=== PATIENT | male | born 1955 | race Caucasian/White ===

== ENCOUNTER 2016-07-10 11:53 | Day surgery (SDC) | payer OTHER ==
[2016-07-08 16:27] VITALS: BMI 26.1
--- NOTE | 2016-07-10 09:05 | HP ---
History & Physical Update - History History: No Change - Physical Physical: No Change - Assessment Assessment: No Change - Plan Plan: No Change
[2016-07-10] MEDS ORDERED: ceFAZolin SODIUM 1 GM VIAL ONE (15:22)
[2016-07-10] MEDS ORDERED: PROPOFOL 20 ML ONE ×2 (15:22→15:43)
[2016-07-10] MEDS ORDERED: ROCURONIUM BROMIDE 50 MG/5 ML VIAL ONE ×2 (15:22→16:32)
[2016-07-10] MEDS ORDERED: MIDAZOLAM HCL 2 MG/2 ML SINGLE DOSE VIAL ONE (15:23)
[2016-07-10] MEDS ORDERED: ceFAZolin SODIUM 1 GM VIAL IVPB ONE (15:48)
[2016-07-10] MEDS ORDERED: BUPIVACAINE HCL/PF 0.5% (5MG/ML) 10 ML VIAL IJ ONE ×2 (16:54)
[2016-07-10] MEDS ORDERED: PHENYLEPHRINE HCL 10 MG/1 ML SINGLE DOSE VIAL ONE (16:55)
--- NOTE | 2016-07-10 18:10 | HP ---
History & Physical Update - History History: No Change - Physical Physical: No Change - Assessment Assessment: No Change - Plan Plan: No Change
[2016-07-10] MEDS ORDERED: ZOLPIDEM TARTRATE 5 MG TABLET PO PRN (18:11)
[2016-07-10] MEDS ORDERED: ACETAMINOPHEN 325 MG TABLET (FP) PO PRN (18:11)
[2016-07-10] MEDS ORDERED: oxyCODONE HCL 5 MG TABLET PO PRN (18:11)
[2016-07-10] MEDS ORDERED: ONDANSETRON 4 MG/2 ML VIAL IVPB PRN (18:11)
--- NOTE | 2016-07-10 18:14 | OP ---
Operative Note - Note: Operative Date: 07/10/16 Pre-Operative Diagnosis: Bilateral inguinal herniae , incarcerated. Operation: Repair of incarcerated, bilateral inguinal herniae with plug and mesh. Implants: Plug x 4, and mesh x 2. Post-Operative Diagnosis: Same as Pre-op Surgeon: Radha Stephenson Mulling Machine Operator: Lisha Pastor Anesthesiologist/GOODYEAR STITCHER: Rosalind Zamora Anesthesia: General Specimens Removed: None. Estimated Blood Loss (mls): 5 Operative Report Dictated: Yes
[2016-07-10] MEDS ORDERED: ONDANSETRON 4 MG/2 ML VIAL IVPUSH PRN (18:15)
[2016-07-10] MEDS ORDERED: HYDROmorphone HCL CARPU-JECT 1 MG/1 ML DISP.SYRIN IVPB PRN (18:16)
[2016-07-10] MEDS ORDERED: HYDROmorphone HCL CARPU-JECT 2 MG/1 ML DISP.SYRIN ONE (18:18)
[2016-07-10] MEDS: ACETAMINOPHEN 1000 MG/100 ML VIAL (NON FORMULARY) IVPB ONE (18:25)
[2016-07-10] MEDS: HYDROmorphone HCL CARPU-JECT 1 MG/1 ML DISP.SYRIN IVPUSH PRN ×4 (18:25→19:10)
[2016-07-10] MEDS: RAMIPRIL 5 MG CAPSULE (FP) PO SCH (21:37)
[2016-07-10] MEDS: busPIRone HCL 5 MG TABLET PO SCH (21:38)
[2016-07-10] MEDS: HEPARIN NA (PORCINE) 5,000 UNITS/ML 1ML VIAL SQ SCH (21:40)
[2016-07-10] MEDS ORDERED: HYDROCHLOROTHIAZIDE 12.5 MG CAPSULE (FP) PO SCH (22:00)
[2016-07-10] MEDS ORDERED: ESCITALOPRAM OXALATE 10 MG TABLET (FP) PO SCH (22:00)
[2016-07-10] MEDS ORDERED: glipiZIDE 5 MG TABLET (FP) PO SCH (22:00)
[2016-07-10] MEDS ORDERED: ATORVASTATIN CA 20 MG TABLET (FP) PO SCH (22:00)
[2016-07-11] MEDS: oxyCODONE HCL 5 MG TABLET PO PRN ×2 (01:55→09:43)
[2016-07-11] MEDS: busPIRone HCL 5 MG TABLET PO SCH ×2 (06:22→14:59)
[2016-07-11] MEDS: DEXTROSE 5%-0.45% SALINE 1,000 ML IV SCH ×2 (06:24→07:54)
[2016-07-11] MEDS: HEPARIN NA (PORCINE) 5,000 UNITS/ML 1ML VIAL SQ SCH ×2 (06:25→14:59)
[2016-07-11] MEDS ORDERED: metFORMIN HCL 500 MG TABLET (FP) PO SCH ×2 (07:00→16:30)
[2016-07-11] MEDS ORDERED: glipiZIDE 5 MG TABLET (FP) PO SCH ×2 (07:00→16:30)
[2016-07-11] MEDS: ACETAMINOPHEN 1000 MG/100 ML VIAL (NON FORMULARY) IVPB ONE ×2 (07:26→07:55)
[2016-07-11] MEDS: RAMIPRIL 5 MG CAPSULE (FP) PO SCH (09:44)
[2016-07-11] MEDS ORDERED: ASPIRIN 81 MG CHEWABLE TABLETS PO SCH (10:00)
--- NOTE | 2016-07-11 13:38 | PN ---
Progress Note, Physician - Current Medication List Current Medications: Active Medications Acetaminophen (Tylenol -) 650 mg PO Q4H PRN PRN Reason: FEVER Last Admin: 07/11/16 09:43 Dose: 650 mg Aspirin (Asa -) 81 mg PO DAILY [facility] Last Admin: 07/11/16 09:44 Dose: 81 mg Atorvastatin Calcium (Lipitor -) 20 mg PO HS [facility] Last Admin: 07/10/16 21:40 Dose: 20 mg Buspirone HCl (Buspar -) 5 mg PO TID [facility] Last Admin: 07/11/16 06:22 Dose: 5 mg Escitalopram Oxalate (Lexapro -) 10 mg PO HS [facility] Last Admin: 07/10/16 21:39 Dose: 10 mg Glipizide (Glucotrol -) 2.5 mg PO DAILY@0700 [facility] Last Admin: 07/11/16 06:23 Dose: 2.5 mg Glipizide (Glucotrol -) 5 mg PO DAILY@1630 [facility] Heparin Sodium (Porcine) (Heparin -) 5,000 unit SQ TID [facility] Last Admin: 07/11/16 06:25 Dose: 5,000 unit Hydrochlorothiazide (Hctz -) 12.5 mg PO [facility] Last Admin: 07/10/16 21:39 Dose: 12.5 mg Hydromorphone HCl (Dilaudid Injection -) 0.5 mg IVPUSH [id number] PRN PRN Reason: PAIN Stop: 07/13/16 18:17 Last Admin: 07/10/16 19:10 Dose: 0.5 mg Hydromorphone HCl (Dilaudid Injection -) 1 mg IVPB Q6H PRN PRN Reason: PAIN LEVEL 6-10 Last Admin: 07/11/16 06:14 Dose: 1 mg Dextrose/Sodium Chloride (D5-1/2ns -) 1,000 mls @ 100 mls/hr IV ASDIR [facility] Last Admin: 07/11/16 07:54 Dose: Not Given Metformin HCl (Glucophage -) 500 mg PO AM [facility] Last Admin: 07/11/16 06:23 Dose: 500 mg Metformin HCl (Glucophage -) 1,000 mg PO ACDIN [facility] Ondansetron HCl (Zofran Injection) 4 mg IVPB Q6H PRN PRN Reason: NAUSEA AND/OR VOMITING Oxycodone HCl (Roxicodone -) 5 mg PO Q4H PRN PRN Reason: PAIN LEVEL 1-5 Oxycodone HCl (Roxicodone -) 10 mg PO Q4H PRN PRN Reason: PAIN LEVEL 6-10 Last Admin: 07/11/16 09:43 Dose: 10 mg Ramipril (Altace -) 5 mg PO BID [facility] Last Admin: 07/11/16 09:44 Dose: 5 mg Zolpidem Tartrate (Ambien -) 5 mg PO HS PRN PRN Reason: Insomnia - Objective Vital Signs: Vital Signs Temperature 98.5 F 07/11/16 08:39 Pulse Rate 111 H 07/11/16 08:39 Respiratory Rate 16 07/11/16 09:00 Blood Pressure 126/72 07/11/16 08:39 O2 Sat by Pulse Oximetry (%) 97 07/11/16 09:00 Assessment/Plan Wound is clean , no complication. Patient states that his apartment has no heat , and water . He cannot go home. He is ambulating , and fit to go home. Will refer to social service.
[2016-07-11 14:38] VITALS: BP 127/71; PULSE 101; TEMP 98.9
--- NOTE | 2016-07-13 11:27 | OP ---
DATE OF OPERATION: 07/10/2016 TIME OF DICTATION: 6:30 p.m. PREOPERATIVE DIAGNOSIS: Large bilateral inguinal hernia, right greater than left. POSTOPERATIVE DIAGNOSIS: Large bilateral inguinal hernia, right greater than left. OPERATIVE PROCEDURE: Repair of bilateral inguinal hernia with plug and mesh (2 plugs), the right larger than left. SURGEON: Catherine Stephenson MD PHARMACY ANCILLARY: SHAYLA Cantrell ANESTHESIA: General anesthesia. ANESTHESIOLOGIST: Magda Zamora DO OPERATIVE DESCRIPTION: This 61-year-old man had large bilateral hernia, the right larger than left which was very wide and large. Patient was brought in for repair of the hernia. Consent was obtained. Risks, benefits, and complications were discussed with the patient. Patient was given general anesthesia. He was given 1 g of Ancef. Both groins were painted and draped. First, the right hernia was performed. An incision was made in the right groin along a skin crease. This was deepened through the skin, subcutaneous fat, Lionel fascia, external oblique aponeurosis. There was a large bulge through the posterior wall of the inguinal canal which was completely almost absent. This was carefully from the cord structures. There was a complete defect on the posterior wall. This was then dissected all the way and 2 large plugs were placed behind the transverse abdominis muscle as well as internal oblique muscle and fascia. This was anchored to the posterior abdominal wall with two 2-0 Prolene sutures. This was carried through the abdominal wall and brought through the internal ring, caught the outer leaf of the mesh, and reintroduced through the internal ring and brought through the transverse abdominis muscle and internal oblique muscle. Three such sutures were obtained, and 2 plugs were used to push the intestine above and behind the defect. Three prolene_sutures were obtained, 1 above and medial , 1 in between, and 1above lateral to the internal ring. The middle suture caught both outer leaves of both the plugs. These plugs were then reinserted and suture pulled up. The mesh was then interposed between the shelving edge of the inguinal ligament and placed over the internal oblique and transverse abdominis muscle. Prior to this, the inferior leaf of the medial plug was sutured down to the Rashawn ligament with 2-0 Prolene sutures. The mesh was then sutured to the shelving edge of the inguinal ligament with interrupted 2-0 Prolene sutures. It was anchored at the level of the pubic tubercle with 2-0 Prolene sutures. The superior leaf of the mesh was incorporated into the Prolene suture, holding the plug behind the transverse abdominis muscle and the internal oblique muscle, and brought through the mesh , sandwiching the internal oblique and transverse abdominis muscle between the plug and the mesh. Laterally, the cord structures were brought around the 2 leaves of the mesh and then the mesh was placed over each other and sutured over the internal oblique muscle, creating a new internal ring. The ilioinguinal nerve and the iliohypogastric nerves were identified and preserved throughout the procedure. Marcaine 0.4% was injected around the cord structures as well as around the nerves and skin and subcutaneous tissue as well as the pubic tubercle. The repair was adequately performed. Wound was irrigated. Hemostasis was achieved. The external oblique aponeurosis was approximated with continuous 3-0 Vicryl sutures in running fashion, and a new external ring was created. Lionel fascia was approximated with running interrupted 3-0 Vicryl sutures. The subcutaneous fat and the dermis were approximated with running interrupted 3-0 Vicryl sutures and skin approximated with continuous 4-0 Biosyn sutures in a running subcuticular fashion. Similar procedure was done on the left side, where again there was a large defect on the posterior wall of the inguinal canal. There was no indirect hernia. Two large plugs were then again inserted behind the transversalis fascia. These were anchored with 2-0 Prolene sutures brought through the internal oblique, transverse abdominis muscle, brought through the internal ring, caught the outer leaf of the plug and then was reintroduced through the internal ring to be brought out through the abdominal wall. The inferior leaf of the plug was again sutured to the Rashawn ligament with 2-0 Prolene sutures. The plug was then inserted to push the small bowel and large intestine above the defect. Mesh was then placed over the internal oblique muscle. It was anchored at the level of the pubic tubercle with 2-0 Prolene sutures. The inferior leaf of the mesh was sutured with interrupted 2-0 Prolene suture to the shelving edge of the inguinal ligament and the VersaTack tacking device. The superior leaf of the mesh was incorporated into the 2-0 Prolene suture holding the plug and the mesh was placed over the internal oblique muscle. Laterally, it was brought around the cord structures, placed over the internal oblique muscle, and the 2 leaves of the mesh were overlapped and anchored over to the internal oblique mesh. The repair was adequately performed. However, on both sides patient had a complete defect of the posterior inguinal canal. Hemostasis was satisfactory. The external oblique aponeurosis was approximated with continuous 3-0 Vicryl sutures, Lionel fascia with running interrupted 3-0 Vicryl sutures, skin and subcutaneous tissue with buried interrupted 3-0 Vicryl sutures , and skin approximated with continuous 4-0 Biosyn sutures in a running subcuticular fashion. Estimated blood loss was between 5 to 10 mL. Sponge count, instrument count were correct. Marcaine 0.4% was injected into the wound. Dermabond was applied to the skin edges. Patient tolerated the procedure well, was extubated , and sent to the recovery room in satisfactory and stable condition. Maxime [id number] MTDD
--- NOTE | 2016-07-15 12:30 | SURG ---
Surgery Stone Trimmer Note Stone Trimmer: Lisha Pastor PA-C Date of Service: 07/10/16 Diagnosis: Bilateral inguinal herniae , incarcerated. Procedure: Repair of incarcerated, bilateral inguinal herniae with plug and mesh. I was present for the entirety of the operative procedure. For further detail, please refer to operative report. Visit type - Case Type Case Type: Scheduled Admission - Emergency Emergency Visit: No - New patient This patient is new to me today: No - Critical Care Critical Care patient: No
== END 2016-07-11 15:13 | disposition home or self-care (01) ==
LOC: JASU-SURG 11:53 → J8W 20:56 → JASU-SURG 07-11 15:13
PROVIDERS: ATTEND Specialist
PROC: 0YUA0JZ Supplement Bilateral Inguinal Region with Synthetic Substitute, Open Approach (ICD-10-PCS; principal; 2016-07-10 13:30)
DX: K40.20 Bilateral inguinal hernia, without obstruction or gangrene, not specified as recurrent (principal)
CPT/HCPCS: 94760; J1644

== ENCOUNTER 2017-01-17 08:46 | Emergency (ER) | payer OTHER ==
[2017-01-17 08:55] VITALS: BP 118/76; PULSE 91; TEMP 98.1; BMI 24.5
--- NOTE | 2017-01-17 10:07 | PDOC ---
History of Present Illness - General Chief Complaint: Headache Stated Complaint: HEADACHE Time Seen by Provider: 01/17/17 09:12 History Source: Patient Exam Limitations: No Limitations - History of Present Illness Initial Comments: 01/17/17 10:04 CHIEF COMPLAINT: Accidental fall at 4 AM on aspirin, left-sided forehead erythema HISTORY OF PRESENT ILLNESS: Patient is a 61-year-old male with history of non- insulin-dependent diabetes and hypertension states that at 4 AM he tripped and fell over a wire hitting the left side of his head complaining of superficial pain to left side of forehead with erythema, patient is currently taking aspirin daily basis . Patient denies any LOC, no nausea vomiting, no unsteady gait, no headache, no visual disturbance. Complaining of generalized musculoskeletal pain from bracing himself prior to fall MEDS: See medication list ALLERGIES: None REVIEW OF SYSTEMS: GENERAL/CONSTITUTIONAL: Awake alert and oriented HEAD, EYES, EARS, NOSE AND THROAT: No change in vision. No facial edema, no bruising. NO active bleeding. Nares intact. Erythema to left lateral forehead. No bruising no raised area. RESPIRATORY: No cough, wheezing, or hemoptysis. CARDIAC: Denies chest pain, no shortness of breathe. MUSCULOSKELETAL: No spinal point tenderness, Good ROM to all four extremeties. NO CVA tenderness. No lateral neck pain. GI/: Denies abdominal pain, no nausea or vomiting, no bloody stool, no Hematuria. SKIN : No erythema or bruising noted. No abrasion or lacerations. NEUROLOGIC: No loss of consciousness, no numbness or tingling. PHYSICAL EXAM: GENERAL: Awake and alert and oriented x3. EYES: The pupils are equal, round, and reactive to light, with clear, conjunctiva. Good extraocular movement. No nystagmus NOSE: No nasal trauma . Midface stable MOUTH: Teeth intact. FACE: Erythema to left lateral forehead, with no bruising or raised area, no step-off, no crepitus. EARS: The ear canals and tympanic membranes are normal without trauma. No drainage. NECK: No Lower cervical C-spine tenderness, no pain with chin to chest. CHEST: The lungs are clear without crackles, or wheezes. No subcutaneous emphysema. No crepitus. HEART: Heart is regular rhythm, with normal S1 and S2, no murmurs. ABDOMEN: The abdomen is soft and nontender with normal bowel sounds. There is no guarding or rebound. MUSCULOSKELETAL: No spinal point tenderness. No bruising or erythema. Pelvis stable. EXTREMITIES: Extremities are normal. No visible traumatic injury. NEUROLOGICAL:Mental status: The patient is oriented x3. No Generalized headache , Romberg - Cranial nerves: Cranial nerves II through XII are intact Motor: The upper extremities are 5 over 5 in all muscle groups. The lower extremities are 5 over 5 in all muscle groups. Sensation: Sensation is intact to light touch throughout. Cerebellar: [id number] is normal in both upper extremities. Heel-knee- bridges is normal in both lower extremities. Reflexes: 2+ and symmetric in the upper and lower extremities. Gait: Normal. Heel and toe walking are normal. Tandem gait is normal. SKIN: Without edema or bruising. No abrasions or lacerations. 01/17/17 11:03 Past History - Past Medical History Allergies/Adverse Reactions: Allergies Allergy/AdvReac Type Severity Reaction Status Date / Time No Known Allergies Allergy Verified 01/17/17 08:51 Home Medications: Ambulatory Orders Aspirin [ASA -] 81 mg PO DAILY 10/07/12 Metformin HCl [Glucophage -] 500 mg PO AM 10/07/12 Ramipril [Altace] 5 mg PO BID 10/07/12 Atorvastatin Ca [Lipitor] 20 mg PO HS 09/19/15 Cholecalciferol (Vitamin D3) [Vitamin D3] 2,000 unit PO DAILY 09/19/15 Glipizide 2.5 mg PO DAILY 09/19/15 Metformin HCl [Glucophage] 1,000 mg PO ACDIN 09/19/15 Buspirone HCl [Buspar -] 5 mg PO TID 07/08/16 Escitalopram Oxalate [Lexapro -] 10 mg PO HS 07/08/16 Glipizide 5 mg PO HS 07/08/16 Hydrochlorothiazide [Hctz -] 12.5 mg PO HS 07/08/16 Anemia: No Asthma: No Cancer: No Cardiac Disorders: No CVA: No COPD: No CHF: No Dementia: No Diabetes: Yes GI Disorders: No Disorders: No HTN: Yes Hypercholesterolemia: No Liver Disease: No Seizures: No Thyroid Disease: No - Surgical History GI Surgery: Yes (BILATERAL INGUINAL HERNIA REPAIR) Orthopedic Surgery: Yes ( AN ) - Immunization History Immunization Up to Date: Yes - Psycho/Social/Smoking Cessation Hx Suicidal Ideation: No Smoking Status: No Smoking History: Never smoked Number of Cigarettes Smoked Daily: 0 Information on smoking cessation initiated: No Hx Alcohol Use: No Drug/Substance Use Hx: No Substance Use Type: None Hx Substance Use Treatment: No *Physical Exam - Vital Signs Last Vital Signs Temp Pulse Resp BP Pulse Ox 98.1 F 91 H 18 118/76 99 01/17/17 08:51 01/17/17 08:51 01/17/17 08:51 01/17/17 08:51 01/17/17 08:51 ED Treatment Course - RADIOLOGY Radiology Studies Ordered: Category Date Time Status HEAD CT WITHOUT CONTRAST [CT] Stat CT Scan 01/17/17 09:27 Ordered Medical Decision Making - Medical Decision Making 01/17/17 10:06 A/P: Patient here status post mechanical fall hitting his head without LOC however patient is on aspirin, will perform head CT to rule out acute intracranial pathology. 01/17/17 11:02 CT Of head negative for acute intracranial pathology, will DC patient home, to return if any increased headache, nausea vomiting, visual disturbance, or any other concerns. 01/17/17 12:28 *DC/Admit/Observation/Transfer Diagnosis at time of Disposition: Accidental fall Qualifiers: Encounter type: initial encounter Qualified Code(s): W19.XXXA - Unspecified fall, initial encounter Head injury Qualifiers: Encounter type: initial encounter Qualified Code(s): S09.90XA - Unspecified injury of head, initial encounter - Discharge Dispostion Disposition: HOME Condition at time of disposition: Good Admit: No - Referrals Referrals: Rosalind Rosales MD [Primary Care Provider] - - Patient Instructions Printed Discharge Instructions: DI for Closed Head Injury Additional Instructions: Your head CAT scan was normal, if any headache, nausea vomiting, unsteady gait, visual disturbance, or any other concerns return to ER
== END 2017-01-17 11:13 | disposition home or self-care (01) ==
LOC: JERFT 08:46
DX: S09.90XA Unspecified injury of head, initial encounter (principal); W18.09XA Striking against other object with subsequent fall, initial encounter; Y93.89 Activity, other specified; Y92.009 Unspecified place in unspecified non-institutional (private) residence as the place of occurrence of the external cause; Z79.82 Long term (current) use of aspirin; E11.9 Type 2 diabetes mellitus without complications; I10 Essential (primary) hypertension
CPT/HCPCS: 70450-TC; 99281-25

== ENCOUNTER 2017-05-23 12:22 | Emergency (ER) | payer OTHER ==
--- NOTE | 2017-05-23 12:35 | PDOC ---
History of Present Illness - General Chief Complaint: Back Pain Stated Complaint: RT LEG AND BACK PAIN Time Seen by Provider: 05/23/17 12:35 - History of Present Illness Initial Comments: 62 year old male with history of NIDDM presenting with right sided lower back pain and right leg paresthesias/numbness/ and weakness since waking up this AM. He describes the back pain as a sharp, burning pain 3/10-8/10 (exacerbated by movement and relieved by laying down and heat) radiating down his right leg most prominent with numbness over his first-third right toes. He denies trauma but was carrying a heavy piece of glass yesterday on his right side, however, he was completely fine after the incident until he woke up the next morning. Denies fevers, chills, nausea, vomiting, urinary symptoms, or other symptoms. 05/23/17 13:05 Past History - Past Medical History Allergies/Adverse Reactions: Allergies Allergy/AdvReac Type Severity Reaction Status Date / Time No Known Allergies Allergy Verified 01/17/17 08:51 Home Medications: Ambulatory Orders Aspirin [ASA -] 81 mg PO DAILY 10/07/12 Ramipril [Altace] 10 mg PO DAILY 10/07/12 Metformin HCl [Glucophage] 1,000 mg PO BID 09/19/15 Escitalopram Oxalate [Lexapro -] 10 mg PO HS 07/08/16 Glipizide 10 mg PO HS 07/08/16 Hydrochlorothiazide [Hctz -] 12.5 mg PO DAILY 07/08/16 Cyclobenzaprine HCl [Flexeril 10 mg] 10 mg PO BID PRN 15 Days #30 tablet Ibuprofen [Motrin -] 600 mg PO TID PRN 7 Days #21 tablet 05/23/17 Anemia: No Asthma: No Cancer: No Cardiac Disorders: No CVA: No COPD: No CHF: No Dementia: No Diabetes: Yes GI Disorders: No Disorders: No HTN: Yes Hypercholesterolemia: No Liver Disease: No Seizures: No Thyroid Disease: No - Surgical History GI Surgery: Yes (BILATERAL INGUINAL HERNIA REPAIR) Orthopedic Surgery: Yes ( AN ) - Immunization History Immunization Up to Date: Yes - Suicide/Smoking/Psychosocial Hx Smoking Status: No Smoking History: Never smoked Number of Cigarettes Smoked Daily: 0 Hx Alcohol Use: No Drug/Substance Use Hx: No Substance Use Type: None Hx Substance Use Treatment: No Review of Systems - Review of Systems Constitutional: No: Chills, Diaphoresis, Fever HEENTM: No: Blurred Vision Respiratory: No: Cough, Shortness of Breath Cardiac (ROS): No: Chest Pain, Lightheadedness ABD/GI: No: Diarrhea, Nausea, Vomiting : No: Dysuria, Flank Pain, Hematuria Musculoskeletal: Yes: Back Pain Integumentary: No: Bruising Neurological: No: Headache, Numbness, Ataxia *Physical Exam - Physical Exam General Appearance: Yes: Nourished, Appropriately Dressed. No: Apparent Distress HEENT: positive: EOMI, OLI, Normal Voice Neck: positive: Trachea midline, Normal Thyroid, Supple. negative: Tender, Rigid Respiratory/Chest: positive: Lungs Clear, Normal Breath Sounds. negative: Chest Tender, Respiratory Distress, Accessory Muscle Use Cardiovascular: positive: Regular Rhythm, Regular Rate. negative: Murmur Gastrointestinal/Abdominal: positive: Normal Bowel Sounds, Flat, Soft. negative : Tender Musculoskeletal: positive: Muscle Spasm (Slight muscle spasm on right thoracolumbar paaraspinal muscles with TTP but no vertebral TTP.). negative: Normal Inspection, Vertebral Tenderness Extremity: positive: Normal Capillary Refill, Normal Inspection. negative: Normal Range of Motion (Slightly limited right LE ROM secondary to back pain. 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 He endorses relief with heat packs and denies bowel/ bladder incontinence. Given these symptoms, this is likely muscular spasm leading to to sciatic nerve impingement. Symptoms point to an L5 distribution. Lumbar X ray negative for acute bony pathology but did demonstrate slight narrowing of the L5-S1 disk space which correlates with the clinical findings. Patients symptoms improved after 1G Tylenol, 5 flexural, and 60 IM toradol. Patient was still having some deficits so gave depo-medrol 80 and 5 PO flexural. Will DC patient home with flexural short course and ibuprofen prescription and orthopedic follow up tomorrow. 05/23/17 14:46 *DC/Admit/Observation/Transfer Diagnosis at time of Disposition: Back pain Qualifiers: Back pain location: low back pain Chronicity: acute Back pain laterality: right Sciatica presence: with sciatica Sciatica laterality: sciatica of right side Qualified Code(s): M54.41 - Lumbago with sciatica, right side - Discharge Dispostion Disposition: HOME Condition at time of disposition: Improved Admit: No - Prescriptions Prescriptions: Cyclobenzaprine HCl [Flexeril 10 mg] 10 mg PO BID PRN 15 Days #30 tablet PRN Reason: Back Pain Ibuprofen [Motrin -] 600 mg PO TID PRN 7 Days #21 tablet PRN Reason: Back Pain - Referrals Referrals: Franca Saenz MD [Primary Care Provider] - Jd Kumar MD [Staff Physician] - - Patient Instructions Printed Discharge Instructions: DI for Back Pain With Sciatica Additional Instructions: You were seen for back pain which we believe is due to a muscle spasm in your lower right back. However, your xray did show some narrowing disk space in your L5-S1 space which does match some of your symptoms. Please follow up with the orthopedic doctor Stacy for further evaluation of your back problems as you may need further treatment or imaging. Please avoid drinking and driving with your flexural. You can take the ibuprofen three times a day as needed and the flexural twice a day as needed. Your sugar levels will be elevated fro the next week or two because of the steroid injection but then should resolve. Please return to the ED if you have worsening pain or problems walking. - Post Discharge Activity
--- NOTE | 2017-05-23 12:40 | PDOC ---
Attending Attestation - Resident Resident Name: Carlos Connor - ED Attending Attestation I have performed the following: I have examined & evaluated the patient, The case was reviewed & discussed with the resident, I agree w/resident's findings & plan, Exceptions are as noted - HPI HPI: 05/23/17 12:35 Sciatica/ Back Pain radiating down Right Leg - Physicial Exam PE: 05/23/17 12:36 VSS/NAD - Medical Decision Making 05/23/17 12:38 I agree with 's assessment and plan.
[2017-05-23 12:43] VITALS: TEMP 98.2; BMI 26.3
[2017-05-23] MEDS ORDERED: ACETAMINOPHEN 500 MG TABLET (FP) PO ONE (12:54)
[2017-05-23] MEDS ORDERED: CYCLOBENZAPRINE HCL 10 MG TABLET (FP) PO ONE ×2 (12:55→15:06)
[2017-05-23] MEDS ORDERED: ACETAMINOPHEN 325 MG TABLET (FP) ONE (13:00)
[2017-05-23] MEDS ORDERED: CYCLOBENZAPRINE HCL 10 MG TABLET (FP) ONE ×2 (13:06→15:20)
[2017-05-23] MEDS ORDERED: KETOROLAC TROMETHAMINE 60 MG/2 ML VIAL IM ONE (14:00)
[2017-05-23] MEDS ORDERED: KETOROLAC TROMETHAMINE 60 MG/2 ML VIAL ONE (14:02)
[2017-05-23] MEDS ORDERED: methylPREDNISolone ACET (DEPO) 80 MG/1 ML VIAL IM ONE (15:12)
[2017-05-23 16:13] VITALS: BP 145/94; PULSE 89
== END 2017-05-23 16:25 | disposition home or self-care (01) ==
LOC: JER 12:22 → SUPCPDRO 12:22 → JER 16:25
PROC: 3E0233Z Introduction of Anti-inflammatory into Muscle, Percutaneous Approach (ICD-10-PCS; principal; 2017-05-23)
PROC: 3E023GC Introduction of Other Therapeutic Substance into Muscle, Percutaneous Approach (ICD-10-PCS; 2017-05-23)
PROC: 3E0233Z Introduction of Anti-inflammatory into Muscle, Percutaneous Approach (ICD-10-PCS; 2017-05-23)
PROC: 3E033GC Introduction of Other Therapeutic Substance into Peripheral Vein, Percutaneous Approach (ICD-10-PCS; 2017-05-23)
DX: M54.41 Lumbago with sciatica, right side (principal); E11.9 Type 2 diabetes mellitus without complications; I10 Essential (primary) hypertension
CPT/HCPCS: 72100-TC; 99282-25

== ENCOUNTER 2018-12-10 10:27 | Emergency (ER) | payer BC, OTHER ==
[2018-12-10 10:33] VITALS: TEMP 98.4
[2018-12-10] MEDS ORDERED: SODIUM CHLORIDE 0.9% 500 ML INFUS.BAG IV ONE (11:22)
[2018-12-10] MEDS ORDERED: ONDANSETRON 4 MG/2 ML VIAL IVPUSH ONE (11:22)
[2018-12-10] MEDS ORDERED: ONDANSETRON 4 MG/2 ML VIAL ONE (12:00)
[2018-12-10 12:10] LABS: BASO % 0.3 % (0-2.0); EOS % 1.3 % (0-4.5); HEMATOCRIT 45.2 % (35.4-49); HEMOGLOBIN 15.8 GM/dL (11.7-16.9); LYMPH % 18.4 % (8-40); MCH 30.8 pg (25.7-33.7); MCHC 34.9 g/dl (32.0-35.9); MEAN CELL VOLUME 88.3 fl (80-96); MEAN PLT VOLUME 7.8 fl (7.5-11.1); MONO % 4.7 % (3.8-10.2); NEUT % 75.3 % (42.8-82.8); RBC 5.11 M/mm3 (4.00-5.60); RDW 12.6 % (11.9-15.9); WHITE BLOOD COUNT 9.7 K/mm3 (4.0-10.0)
[2018-12-10 12:14] LABS: EPI CELLS 0.5 /HPF (0-5/HPF); HYALINE CASTS 0 /lpf (0-8); URINE APPEARANCE CLEAR; URINE BACTERIA 0.7 /hpf (NEGATIVE); URINE BILIRUBIN NEGATIVE (NEGATIVE); URINE COLOR YELLOW; URINE GLUCOSE (UA) NEGATIVE (NEGATIVE); URINE KETONE NEGATIVE (NEGATIVE); URINE LEUK ESTERASE NEGATIVE (NEGATIVE); URINE NITRITE NEGATIVE (NEGATIVE); URINE PROTEIN 1+ (NEGATIVE); URINE RBC 0 /hpf (0-4); URINE UROBILINOGEN 0.2 mg/dL (0.2-1.0); URINE WBC 0 /hpf (0-5)
[2018-12-10 12:15] LABS: PLATELET COUNT 306 K/MM3 (134-434)
[2018-12-10 12:18] LABS: INR 0.93 (0.83-1.09)
[2018-12-10 12:28] LABS: ALBUMIN 4.5 g/dl (3.4-5.0); BILIRUBIN,TOTAL 0.4 mg/dL (0.2-1); BLOOD UREA NITROGEN 27.9 mg/dL (7-18); CALCIUM 9.9 mg/dL (8.5-10.1); CREATININE 1.3 mg/dL (0.55-1.3); MAGNESIUM 2.1 mg/dL (1.8-2.4); PHOSPHOROUS 2.9 mg/dL (2.5-4.9); POTASSIUM 4.6 mmol/L (3.5-5.1); TOT PROT 7.7 g/dl (6.4-8.2)
[2018-12-10] MEDS ORDERED: sitaGLIPtin PHOSPHATE 50 MG TABLET PO ONE (12:43)
[2018-12-10] MEDS ORDERED: HYDROCHLOROTHIAZIDE 25 MG TABLET (FP) PO ONE (12:43)
[2018-12-10] MEDS ORDERED: metFORMIN HCL 500 MG TABLET (FP) PO ONE (12:43)
--- NOTE | 2018-12-10 12:44 | PDOC ---
History of Present Illness - General Chief Complaint: Nausea/Vomiting Stated Complaint: FOOD POISON Time Seen by Provider: 12/10/18 10:58 History Source: Patient Exam Limitations: No Limitations - History of Present Illness Initial Comments: 12/10/18 13:13 63 yo M w/ a h/o DM, HTN, comes in c/o 3 episodes of NBNB vomiting today since 2am. (+)mild nausea and generalized malaise. He feels a lot better now, no fever /chills, no abdominal pain, no diarrhea, no chest pain, no SOB, no back pain, no headache, no urinary symptoms. He has not taken any meds for symptoms. It all started after he ate a BLT sandwich yesterday. No known sick contacts, no recent travel. 12/10/18 13:15 12/10/18 13:17 Past History - Past Medical History Allergies/Adverse Reactions: Allergies Allergy/AdvReac Type Severity Reaction Status Date / Time No Known Allergies Allergy Verified 12/10/18 10:33 Home Medications: Ambulatory Orders Aspirin [ASA -] 81 mg PO DAILY 10/07/12 Ramipril [Altace] 10 mg PO DAILY 10/07/12 Metformin HCl [Glucophage] 1,000 mg PO BID 09/19/15 Escitalopram Oxalate [Lexapro -] 10 mg PO HS 07/08/16 Glipizide 10 mg PO HS 07/08/16 Hydrochlorothiazide [Hctz -] 12.5 mg PO DAILY 07/08/16 Cyclobenzaprine HCl [Flexeril 10 mg] 10 mg PO BID PRN 15 Days #30 tablet Ibuprofen [Motrin -] 600 mg PO TID PRN 7 Days #21 tablet 05/23/17 Anemia: No Asthma: No Cancer: No Cardiac Disorders: No CVA: No COPD: No CHF: No Dementia: No Diabetes: Yes (NIDDM) GI Disorders: No Disorders: No HTN: Yes Hypercholesterolemia: No Liver Disease: No Seizures: No Thyroid Disease: No - Surgical History GI Surgery: Yes (BILATERAL INGUINAL HERNIA REPAIR) Orthopedic Surgery: Yes ( AN ) - Immunization History Immunization Up to Date: Yes - Suicide/Smoking/Psychosocial Hx Smoking Status: No Smoking History: Never smoked Number of Cigarettes Smoked Daily: 0 Hx Alcohol Use: No Drug/Substance Use Hx: No Substance Use Type: None Hx Substance Use Treatment: No Review of Systems - Review of Systems Able to Perform ROS?: Yes Constitutional: Yes: Malaise. No: Chills, Fever, Night Sweats HEENTM: No: Eye Pain, Recent change in vision, Throat Pain Respiratory: No: Cough, Shortness of Breath Cardiac (ROS): No: Chest Pain, Palpitations, Chest Tightness ABD/GI: Yes: Nausea, Vomiting. No: Diarrhea, Abdominal cramping : No: Dysuria, Hematuria Musculoskeletal: No: Back Pain Integumentary: No: Rash Neurological: No: Headache, Numbness, Dizziness Psychiatric: No: Change in Appetite Endocrine: No: Unexplained Weight Loss *Physical Exam - Vital Signs Last Vital Signs Temp Pulse Resp BP Pulse Ox 98.4 F 100 H 20 138/99 99 12/10/18 10:31 12/10/18 10:31 12/10/18 10:31 12/10/18 10:31 12/10/18 10:31 - Physical Exam General Appearance: Yes: Nourished. No: Apparent Distress HEENT: positive: OLI, Normal ENT Inspection, Normal Voice. negative: Pale Conjunctivae, Scleral Icterus (R), Scleral Icterus (L) Neck: positive: Supple. negative: Decreased range of motion, Tender midline Respiratory/Chest: positive: Lungs Clear, Normal Breath Sounds. negative: Respiratory Distress, Accessory Muscle Use Cardiovascular: positive: Regular Rhythm, Regular Rate Gastrointestinal/Abdominal: positive: Normal Bowel Sounds, Soft, Other (no tenderness at McBurney's sign, (-)johnson's sign, no CVA tenderness). negative: Tender, Guarding, Rebound, Tenderness Musculoskeletal: positive: Normal Inspection. negative: CVA Tenderness, Decreased Range of Motion Extremity: positive: Normal Capillary Refill, Normal Inspection, Normal Range of Motion. negative: Tender, Pedal Edema Integumentary: positive: Normal Color, Dry. negative: Jaundice, Rash Neurologic: positive: Fully Oriented, Alert, Normal Mood/Affect ED Treatment Course - LABORATORY CBC & Chemistry Diagram: 12/10/18 11:50 12/10/18 11:50 - ADDITIONAL ORDERS Additional order review: Laboratory Results 12/10/18 12/10/18 12/10/18 11:50 11:50 11:50 PT with INR 11.00 INR 0.93 Sodium 139 Potassium 4.6 Chloride 103 Carbon Dioxide 30 Anion Gap 6 L BUN 27.9 H Creatinine 1.3 Est GFR (CKD-EPI)AfAm 68.25 Est GFR (CKD-EPI)NonAf 58.89 Random Glucose 165 H Calcium 9.9 Phosphorus 2.9 Magnesium 2.1 Total Bilirubin 0.4 AST 26 ALT 60 Alkaline Phosphatase 65 Total Protein 7.7 Albumin 4.5 Lipase 255 Urine Color Yellow Urine Appearance Clear Urine pH 5.0 Ur Specific [place] 1.024 Urine Protein 1+ H Urine Glucose (UA) Negative Urine Ketones Negative Urine Blood Negative Urine Nitrite Negative Urine Bilirubin Negative Urine Urobilinogen 0.2 Ur Leukocyte Esterase Negative Urine WBC (Auto) 0 Urine RBC (Auto) 0 Urine Casts (Auto) 0 U Epithel Cells (Auto) 0.5 Urine Bacteria (Auto) 0.7 12/10/18 11:50 RBC 5.11 MCV 88.3 MCHC 34.9 RDW 12.6 D MPV 7.8 Neutrophils % 75.3 Lymphocytes % 18.4 Monocytes % 4.7 Eosinophils % 1.3 Basophils % 0.3 - Medications Given in the ED: ED Medications Discontinued Medications Generic Name Dose Route Start Last Admin Trade Name Freq PRN Reason Stop Dose Admin Ondansetron HCl 4 mg 12/10/18 11:22 12/10/18 12:05 Zofran Injection IVPUSH 12/10/18 11:23 4 mg ONCE ONE Administration Sodium Chloride 1,000 ml 12/10/18 11:22 12/10/18 12:05 Normal Saline - IV 12/10/18 11:23 1,000 ml ONCE ONE Administration Medical Decision Making - Medical Decision Making 12/10/18 13:17 63 yo M w/ nausea, vomiting after eating BLT sandwich, feels a lot better now, but will line and lab, check lytes, give some IV fluids, do PO challenge and reassess. Pt has not taken his metformin, HCTz, januvia today, will give him his meds. 12/10/18 14:27 Pt feeling a lot beter, he ate and drank in ED, HR came down to 82, abdomen soft , NT, ND. Pt non toxic appearing in NAD PMD follow up Return for worsening/concerning symptoms Pt verbalizes understanding and agrees with plan *DC/Admit/Observation/Transfer Diagnosis at time of Disposition: Diarrhea Qualifiers: Diarrhea type: unspecified type Qualified Code(s): R19.7 - Diarrhea, unspecified - Discharge Dispostion Disposition: HOME Condition at time of disposition: Stable - Referrals Referrals: Jake Gomez [Primary Care Provider] - - Patient Instructions Additional Instructions: Please make a follow up appointment with your PMD. Rest and drink lots of fluids. NO dairy/greasy foods. Return for worsening/concerning symptoms including but not limited to fever, abdominal pain, vomiting, headache, chest pain. - Post Discharge Activity
[2018-12-10] MEDS ORDERED: metFORMIN HCL 500 MG TABLET (FP) ONE (13:10)
[2018-12-10] MEDS ORDERED: HYDROCHLOROTHIAZIDE 25 MG TABLET (FP) ONE (13:10)
[2018-12-10] MEDS ORDERED: sitaGLIPtin PHOSPHATE 50 MG TABLET ONE (13:10)
[2018-12-10 14:53] VITALS: BP 136/76; PULSE 88
== END 2018-12-10 14:53 | disposition home or self-care (01) ==
LOC: JER 10:27
PROC: 3E033GC Introduction of Other Therapeutic Substance into Peripheral Vein, Percutaneous Approach (ICD-10-PCS; principal; 2018-12-10)
PROC: 3E0337Z Introduction of Electrolytic and Water Balance Substance into Peripheral Vein, Percutaneous Approach (ICD-10-PCS; 2018-12-10)
DX: R19.7 Diarrhea, unspecified (principal); E11.9 Type 2 diabetes mellitus without complications; Z79.84 Long term (current) use of oral hypoglycemic drugs; I10 Essential (primary) hypertension
CPT/HCPCS: 36415; 80053; 81003; 83690; 83735; 84100; 85025; 85610; 86850; 86900; 86901; 87086; 99282-25